=== PATIENT | female | born 1930 | race Caucasian/White ===

== ENCOUNTER 2019-03-23 23:12 | Inpatient (IN) ==
[2019-03-24] MEDS ORDERED: Ondansetron 4 MG/2 ML VIAL IVP PRN (00:23)
[2019-03-24] MEDS ORDERED: Ringers Solution, Lactated 1,000 ML IVC SCH ×2 (00:30→09:45)
[2019-03-24] MEDS ORDERED: Famotidine 20 MG/2 ML VIAL IVP ONE (00:31)
[2019-03-24] MEDS ORDERED: Ketorolac 30 MG/ML VIAL IVP ONE (00:31)
[2019-03-24 00:36] LABS: Basophils % 0.1 %; Hematocrit 40.3 % (35.3-44.9); Hemoglobin 13.4 g/dL (11.5-15.4); Immature Granulocytes % 0.5 % (0-4); Lymphocytes # 0.6 K/mcL (0.6-4.6); Lymphocytes % 3.9 %; Mean Corpuscular HGB Conc 33.3 g/dL (31.6-35.5); Mean Corpuscular Hemoglobin 32.1 pg (28.0-33.3); Mean Corpuscular Volume 96.6 fL (83.0-100.0); Mean Platelet Volume 9.7 fL (9.4-12.4); Monocytes % 6.9 %; Neutrophils # 13.1 K/mcL (1.6-8.9); Platelet Count 137 K/mcL (140-400); Red Blood Count 4.17 M/mcL (3.82-4.97); Segmented Neutrophils % 88.6 %; White Blood Count 14.8 K/mcL (4.3-11.1)
[2019-03-24 00:43] LABS: INR 1.5
[2019-03-24 00:46] LABS: Activated Partial Thrombo Time 32.3 Seconds (26.0-36.0)
[2019-03-24 01:05] LABS: Albumin 3.3 g/dL (3.5-5.7); Albumin/Globulin Ratio 1.3 (1.1-2.2); Bilirubin,Direct 2.2 mg/dL (0.0-0.2); Bilirubin,Indirect 1.6 mg/dL (0.0-1.0); Bilirubin,Total 3.8 mg/dL (0.3-1.0); Calcium 7.9 mg/dL (8.6-10.3); Globulin 2.5 g/dL (2.4-3.5); Magnesium 1.6 mg/dL (1.6-2.6); Phosphorous 3.9 mg/dL (2.7-4.5); Potassium 3.1 mEq/L (3.5-5.1); Total Protein 5.8 g/dL (6.4-8.9)
[2019-03-24] MEDS ORDERED: Potassium Chloride Elixir 20 MEQ/15 ML UDC PO ONE (01:44)
[2019-03-24] MEDS: *HR* Heparin 5,000 UNIT/ML VIAL SQ SCH ×2 (05:52→17:46)
[2019-03-24] MEDS: Pantoprazole 40 MG VIAL IVP SCH ×2 (05:52→17:46)
[2019-03-24] MEDS ORDERED: Potassium Chloride 40 MEQ, Lidocaine 1% 2 ML in 0.9 % Sodium Chloride 500 ML IVPB ONE (07:58)
[2019-03-24] MEDS ORDERED: 0.9 % Sodium Chloride 500 ML IVC ONE (08:29)
[2019-03-24] MEDS ORDERED: Ertapenem 1,000 MG in 0.9 % Sodium Chloride Mini Bag 100 ML IVPB SCH (09:00)
[2019-03-24] MEDS ORDERED: Lisinopril 20 MG TABLET PO SCH (09:00)
[2019-03-24] MEDS: Piperacillin/Tazobactam 3.375 GM in 0.9 % Sodium Chloride Mini Bag 100 ML IVPB SCH ×3 (09:35→23:31)
[2019-03-24] MEDS ORDERED: 0.45 % Sodium Chloride w/KCl 20 MEQ/1,000 ML MLS IVC SCH (11:00)
[2019-03-24] MEDS: D5% in 0.45% NACL 1,000 ML IVC SCH (17:46)
[2019-03-25 05:43] LABS: Hematocrit 35.7 % (35.3-44.9); Hemoglobin 11.9 g/dL (11.5-15.4); Mean Corpuscular HGB Conc 33.3 g/dL (31.6-35.5); Mean Corpuscular Hemoglobin 31.7 pg (28.0-33.3); Mean Corpuscular Volume 95.2 fL (83.0-100.0); Mean Platelet Volume 10.4 fL (9.4-12.4); Platelet Count 118 K/mcL (140-400); Red Blood Count 3.75 M/mcL (3.82-4.97); Red Cell Distribution Width 13.2 % (11.5-14.5); White Blood Count 9.5 K/mcL (4.3-11.1)
[2019-03-25 06:06] LABS: Albumin 2.7 g/dL (3.5-5.7); Albumin/Globulin Ratio 1.2 (1.1-2.2); Bilirubin,Total 3.6 mg/dL (0.3-1.0); Calcium 7.6 mg/dL (8.6-10.3); Chol/HDL Ratio 9.9 (0-4.9); Globulin 2.2 g/dL (2.4-3.5); Potassium 3.2 mEq/L (3.5-5.1); Total Protein 4.9 g/dL (6.4-8.9)
[2019-03-25 06:17] LABS: Thyroid Stimulating Hormone 1.046 mcIU/mL (0.340-5.600)
[2019-03-25] MEDS: Pantoprazole 40 MG VIAL IVP SCH (06:29)
[2019-03-25] MEDS: *HR* Heparin 5,000 UNIT/ML VIAL SQ SCH (06:34)
[2019-03-25] MEDS: D5% in 0.45% NACL 1,000 ML IVC SCH (07:16)
[2019-03-25 08:33] LABS: VBG Ionized Calcium 1.07 mmol/L (1.15-1.35)
[2019-03-25] MEDS ORDERED: 0.9 % Sodium Chloride 1,000 ML IVC SCH (09:00)
[2019-03-25] MEDS: Piperacillin/Tazobactam 3.375 GM in 0.9 % Sodium Chloride Mini Bag 100 ML IVPB SCH (09:44)
[2019-03-25 10:56] VITALS: BP 112/68
[2019-03-27 07:21] LABS: ANA IgG by ELISA NONE DETECTED (None Detected)
[2019-03-27 07:27] LABS: Immunoglobulin G Subclass 4 16 mg/dL (1-123)
== END 2019-03-25 14:14 | disposition home or self-care (01) | DRG 444 ==
LOC: 3ANU → SUATTDRO 23:12
PROVIDERS: ADMIT Internal Medicine; ATTEND Family Medicine